=== PATIENT | female | born 1990 | race Two or more races ===

== ENCOUNTER 2019-01-12 21:19 | Emergency (ER) | payer OTHER ==
[~2019-01-12] VITALS: Ht 167.6 cm; Wt 74.5 kg
[2019-01-12 21:30] VITALS: BP 128/91
[2019-01-12] MEDS ORDERED: ADDE10 PO (21:36)
[2019-01-12] MEDS ORDERED: ANXIETY MED PO (21:36)
== END 2019-01-12 22:20 | disposition left against medical advice (07) ==
LOC: EMS 21:21
DX: F29 Unspecified psychosis not due to a substance or known physiological condition (principal); Z53.21 Procedure and treatment not carried out due to patient leaving prior to being seen by health care provider